=== PATIENT | female | born 1950 ===

== ENCOUNTER 2021-07-07 09:15 | Day surgery (SDC) | payer OTHER | END 2021-07-07 14:45 | disposition home or self-care (01) | LOC: AMB-ENDOS 09:15 | PROVIDERS: ATTEND Colon & Rectal Surgery | DX: D12.0 Benign neoplasm of cecum (principal); I10 Essential (primary) hypertension; Z88.2 Allergy status to sulfonamides; K64.4 Residual hemorrhoidal skin tags; Z20.822 Contact with and (suspected) exposure to COVID-19 ==